=== PATIENT | female | born 1975 ===

== ENCOUNTER → 2020-11-09 10:58 | Outpatient (CLI) | payer OTHER, SELFPAY ==
[2020-11-11 22:52] LABS: QuantiFERON Mitogen Value 8.01 IU/mL (.); QuantiFERON Nil Value 0.15 IU/mL (.); QuantiFERON TB Gold Plus Negative (Negative); QuantiFERON TB1 Ag Value 0.24 IU/mL (.); QuantiFERON TB2 Ag Value 0.14 IU/mL (.)
== END ==
PROVIDERS: PCP Family Medicine; Referring Provider Dermatology; Visit Provider Dermatology
DX: Z79.899 Other long term (current) drug therapy (principal); L40.0 Psoriasis vulgaris
CPT/HCPCS: 36415; 86480